=== PATIENT | female | born 1970 | race Caucasian/White ===

== ENCOUNTER 2016-06-27 12:29 | Outpatient (RCR) | payer MEDICAID ==
[2016-06-27 13:56] LABS: BASOPHILS # (AUTO) 0.1 10^3/uL (0.0-0.1); BASOPHILS % (AUTO) 1 % (0-10); EOSINOPHILS # (AUTO) 0.2 10^3/uL (0.0-0.3); EOSINOPHILS % (AUTO) 4 % (0-10); LYMPHOCYTES # (AUTO) 1.9 X 10^3 (1.0-4.0); LYMPHOCYTES % (AUTO) 30 % (12-44); MEAN CORPUSCULAR HEMOGLOBIN 21 PG (25-34); MEAN CORPUSCULAR HGB CONC 31 G/DL (32-36); MEAN CORPUSCULAR VOLUME 68 FL (80-99); MEAN PLATELET VOLUME 10.1 FL (7.4-10.4); MONOCYTES # (AUTO) 0.5 X 10^3 (0.0-1.0); MONOCYTES % (AUTO) 8 % (0-12); NEUTROPHILS # (AUTO) 3.8 X 10^3 (1.8-7.8); NEUTROPHILS % (AUTO) 58 % (42-75); PLATELET COUNT 473 10^3/uL (130-400); RED BLOOD COUNT 5.01 10^6/uL (4.35-5.85); RED CELL DISTRIBUTION WIDTH 20.3 % (10.0-14.5); RETICULOCYTE % 0.54 % (0.50-2.40); WHITE BLOOD COUNT 6.5 10^3/uL (4.3-11.0)
[2016-06-27 14:26] LABS: ALANINE AMINOTRANSFERASE 16 U/L (0-55); ALBUMIN 4.5 G/DL (3.2-4.5); ANION GAP 7 MMOL/L (5-14); ASPARTATE AMINO TRANSFERASE 14 U/L (5-34); BILIRUBIN,TOTAL 0.3 MG/DL (0.1-1.0); BLOOD UREA NITROGEN 16 MG/DL (7-18); BUN/CREATININE RATIO 18; CALCIUM 9.7 MG/DL (8.5-10.1); CARBON DIOXIDE 22 MMOL/L (21-32); CHLORIDE 108 MMOL/L (98-107); GFR ESTIMATED > 60; GLUCOSE 95 MG/DL (70-105); LACTATE DEHYDROGENASE 217 U/L (125-220); POTASSIUM 3.9 MMOL/L (3.6-5.0); SODIUM 137 MMOL/L (135-145); TOTAL PROTEIN 7.9 G/DL (6.4-8.2)
[2016-06-27 14:49] LABS: THYROID STIMULATING HORMONE 1.14 UIU/ML (0.35-4.94)
[2016-08-30] MEDS ORDERED: SUMA100T3 PO (13:00)
[2016-08-30] MEDS ORDERED: OMEP20TA7 PO (13:00)
[2016-08-30] MEDS ORDERED: TRAM50TA2 PO (13:00)
[2016-08-30] MEDS ORDERED: TOPI50TA37 PO (13:00)
[2016-09-07] MEDS ORDERED: DOCU100C37 PO (08:51)
[2016-09-07] MEDS ORDERED: IBUP-1773 PO (08:51)
[2016-09-07] MEDS ORDERED: SIME80TA16 PO (08:51)
[2016-09-07] MEDS ORDERED: HYDR-3816 PO (08:51)
== END 2016-09-25 | disposition home or self-care (01) ==
LOC: ONC 12:29
PROVIDERS: ATTEND Internal Medicine Hematology & Oncology
DX: D50.0 Iron deficiency anemia secondary to blood loss (chronic) (principal); N92.0 Excessive and frequent menstruation with regular cycle; R04.0 Epistaxis
CPT/HCPCS: 36415; 80053; 82728; 83540; 83615; 84443; 85025; 85045; 99214

== ENCOUNTER 2016-08-30 12:43 | Outpatient (CLI) | payer MEDICAID ==
[~2016-08-30] VITALS: Ht 165.1 cm; Wt 73.0 kg
[2016-08-30 12:56] VITALS: BP 109/69
[2016-08-30] MEDS ORDERED: TOPI50TA37 PO (13:00)
[2016-08-30] MEDS ORDERED: SUMA100T3 PO (13:00)
[2016-08-30] MEDS ORDERED: OMEP20TA7 PO (13:00)
[2016-08-30] MEDS ORDERED: TRAM50TA2 PO (13:00)
[2016-08-30 13:31] LABS: BASOPHILS # (AUTO) 0.1 10^3/uL (0.0-0.1); BASOPHILS % (AUTO) 2 % (0-10); EOSINOPHILS # (AUTO) 0.3 10^3/uL (0.0-0.3); EOSINOPHILS % (AUTO) 7 % (0-10); LYMPHOCYTES # (AUTO) 1.7 X 10^3 (1.0-4.0); LYMPHOCYTES % (AUTO) 37 % (12-44); MEAN CORPUSCULAR HEMOGLOBIN 23 PG (25-34); MEAN CORPUSCULAR HGB CONC 31 G/DL (32-36); MEAN CORPUSCULAR VOLUME 73 FL (80-99); MEAN PLATELET VOLUME 11.1 FL (7.4-10.4); MONOCYTES # (AUTO) 0.5 X 10^3 (0.0-1.0); MONOCYTES % (AUTO) 10 % (0-12); NEUTROPHILS # (AUTO) 2.1 X 10^3 (1.8-7.8); NEUTROPHILS % (AUTO) 45 % (42-75); PLATELET COUNT 267 10^3/uL (130-400); RED BLOOD COUNT 4.95 10^6/uL (4.35-5.85); RED CELL DISTRIBUTION WIDTH 20.5 % (10.0-14.5); WHITE BLOOD COUNT 4.7 10^3/uL (4.3-11.0)
== END 2016-08-30 13:20 | disposition home or self-care (01) ==
LOC: PREOP 12:43
PROVIDERS: ATTEND Obstetrics & Gynecology
DX: Z01.812 Encounter for preprocedural laboratory examination (principal); Z11.2 Encounter for screening for other bacterial diseases; N92.0 Excessive and frequent menstruation with regular cycle; D50.0 Iron deficiency anemia secondary to blood loss (chronic)
CPT/HCPCS: 36415; 85025; 86850; 86900; 86901; 87081

== ENCOUNTER 2016-09-07 06:00 | Day surgery (SDC) | payer MEDICAID ==
[~2016-09-07] VITALS: Ht 165.1 cm; Wt 73.0 kg
[~2016-09-07 06:00] MED LIST: OMEP20TA7 PO; SUMA100T3 PO; TOPI50TA37 PO; TRAM50TA2 PO
[2016-09-07] MEDS ORDERED: BUPIVACAINE 0.25% 30 ML (SENSORCAINE) VIAL ONE (06:30)
[2016-09-07] MEDS: LACTATED RINGERS 1,000 ML IV PRN ×2 (06:30→08:15)
[2016-09-07] MEDS ORDERED: ceFAZolin 1,000 MG (ANCEF) VIAL ONE (06:32)
[2016-09-07] MEDS ORDERED: metroNIDAZOLE 500MG/100ML IVPB 100 ML ONE (06:32)
[2016-09-07] MEDS ORDERED: NS (IVPB) 50 ML ONE (06:32)
--- NOTE | 2016-09-07 06:53 | Progress Note-Pre Operative ---
Pre-Operative Progress Note H&P Reviewed The H&P was reviewed, patient examined and no changes noted. Date Seen by Provider: Sep 07, 2016 Time Seen by Provider: 06:45 Date H&P Reviewed: Sep 07, 2016 Time H&P Reviewed: 06:45 Pre-Operative Diagnosis: Chronic blood loss anemia, LOYDAB DINORAH COLEMAN DO Sep 07, 2016 6:53 am
[2016-09-07] MEDS ORDERED: metroNIDAZOLE 500 MG/100 ML IVPB (PRE-MIX) IV ONE (07:00)
[2016-09-07] MEDS ORDERED: ceFAZolin 1 GM/NS 50 ML IVPB IV ONE ×2 (07:00)
[2016-09-07] MEDS ORDERED: CATHETER FLUSH 10 ML SYR IV PRN (07:00)
[2016-09-07] MEDS ORDERED: fentaNYL INJECTION 250 MCG/5 ML AMP ONE (07:01)
[2016-09-07] MEDS ORDERED: MIDAZOLAM 2 MG/2 ML (VERSED) VIAL ONE (07:01)
[2016-09-07] MEDS ORDERED: proPOfol 200 MG/20 ML (DIPRIVAN) VIAL IV ONE (08:31)
[2016-09-07] MEDS ORDERED: SEVOFLURANE (ULTANE) 15 ML INHAL SOLN ONE ×3 (08:31→08:36)
[2016-09-07] MEDS ORDERED: ONDANSETRON 4 MG/2 ML (SDV) Z0FRAN ONE (08:31)
[2016-09-07] MEDS ORDERED: LACTATED RINGERS 1,000 ML IV ONE ×2 (08:31)
[2016-09-07] MEDS ORDERED: ROCURONIUM 50 MG/5 ML (ZEMURON) VIAL IV ONE (08:31)
[2016-09-07] MEDS ORDERED: LIDOCAINE PF 2% 5 ML (XYLOCAINE) VIAL ONE (08:31)
[2016-09-07] MEDS ORDERED: DEXAMETHASONE PF 10 MG/ML (DECADRON) VIAL ONE (08:31)
[2016-09-07] MEDS ORDERED: NEOSTIGMINE (BLOXIVERZ ) 1 MG/1ML 10 ML VIAL ONE (08:32)
[2016-09-07] MEDS ORDERED: GLYCOPYRROLATE 0.2 MG/ML (ROBINUL) 2 ML VIAL ONE (08:32)
[2016-09-07] MEDS ORDERED: HYDROcodone/APAP 7.5 MG/325 MG (LORTAB, LORCET PLUS) TABLET PO PRN (08:45)
[2016-09-07] MEDS ORDERED: DOCUSATE SODIUM 100 MG (COLACE) CAP PO PRN (08:45)
[2016-09-07] MEDS ORDERED: ANTACID SUSP 30 ML UDC (MYLANTA) PO PRN (08:45)
[2016-09-07] MEDS ORDERED: ZOLPIDEM 5 MG (AMBIEN) TAB PO PRN (08:45)
[2016-09-07] MEDS ORDERED: CHLORASEPTIC LOZENGE MM PRN (08:45)
[2016-09-07] MEDS ORDERED: SIMETHICONE 80 MG (MYLICON) CHEW PO PRN (08:45)
[2016-09-07] MEDS ORDERED: ONDANSETRON 4 MG/2 ML (SDV) Z0FRAN IV PRN (08:45)
[2016-09-07] MEDS ORDERED: LACTATED RINGERS 1,000 ML IV SCH (08:45)
--- NOTE | 2016-09-07 08:49 | Discharge Inst-Women's Service ---
Discharge Inst-Women's Serv Depart Medication/Instructions New, Converted or Re-Newed RX: RX on Chart Consults/Follow Up Additional Follow Up: Yes Orders/Referrals Dr. Arias 7-10 days, and 8 weeks Activity Activity: Activity as Tolerated Driving Instructions: No Driving for 1 Week NO SMOKING: NO SMOKING Nothing Inside Vagina: No Douching, No [employer], No Tampons Diet Discharge Diet: No Restrictions Symptoms to Report to : Bleeding Excessive, Pain Increased, Fever Over 101 Degrees F, Vaginal Bleeding Increase, Questions/Concerns For Any Problems or Questions: Contact Your Physician Skin/Wound Care Infection Signs and Symptoms: Increased Redness, Foul Odor of Wound, Increased Drainage, Skin Itchy or Has a Rash, Increased Swelling, Temperature Above 101 F Operative Area Clean and Dry: Keep Incision Clean/Dry Stitches/Griffin/Dermabond: Dermabond, Care of Stitches Bathing Instructions: DINORAH Bueno DO Sep 07, 2016 08:49
[2016-09-07] MEDS ORDERED: IBUP-1773 PO (08:51)
[2016-09-07] MEDS ORDERED: HYDR-3816 PO (08:51)
[2016-09-07] MEDS ORDERED: DOCU100C37 PO (08:51)
[2016-09-07] MEDS ORDERED: SIME80TA16 PO (08:51)
--- NOTE | 2016-09-07 08:59 | Progress Note-Post Operative ---
Post-Operative Progess Note Surgeon (s)/[employer] (s) Surgeon DINORAH COLEMAN DO [employer]: Daya Pisano Pre-Operative Diagnosis Chronic blood loss anemia, AUB Post-Operative Diagnosis same Procedure & Operative Findings Date of Procedure 09/07/16 Procedure Performed/Findings Procedure: Robotic assisted total laparoscopic hysterectomy with bilateral salpingectomy Assist: Daya Pisano Anesthesia: GETA EBL: 30 mL Fluids: 1200 ml LR UOP: 20 clear Findings: grossly normal appearing bilateral fallopian tubes and ovaries Procedure in detail: The patient taken the operating room where general anesthesia was found to be adequate. She is placed in dorsal lithotomy position prepped and draped in normal sterile fashion. She is first examined under anesthesia the uterus is fixed anteverted, no adnexal masses are appreciated. A weighted speculum was inserted patient's vagina after Carpenter catheter is placed using sterile technique. A right angle retractor is used to visualize the cervix. This grasped at the 12 o'clock position using a long Allis clamp. A 0 Vicryl sutures placed the anterior lip of the cervix and uses my retraction point. The Allises removed. I sounded uterine cavity depth which is found to be 8 cm. I selected a 8 cm Jo-Ann uterine manipulator tip, and a 3.5 cm colpotomy ring. The remaining is and placed into the endometrial cavity the balloon was deployed and the colpotomy ring is advanced around the vaginal fornix. I then removal all of the other instruments from the patient's vagina and taken back into the abdomen where infraumbilically I infiltrated 0 using quarter percent Marcaine and make an 8 mm incision using the knife. I directed varies needle through this incision until intraperitoneal placement was confirmed using a saline drop test. An opening pressure of 4 mmHg is noted using CO2 gas I insufflate the peritoneal cavity to a pressure of 15 mmHg at which point I removed the varies needle and introduce an 8 mm blunt da Leidy camera trocar. Once this is in place unable to confirm intraperitoneal placement using the da Leidy laparoscope. I then had the patient placed in steep Trendelenburg and am able to visualize all of the adequate structures to perform the procedure as planned. There is no evidence of damage upon my entry site. I then direct 2 more trochars through the abdominal wall using both 8 mm trochars placed approximately 10 cm lateral to my infraumbilical trocar. Incisions are made using the knife, and the trochars are directed under direct visualization of the laparoscope. Once these are in place I bring in the da Leidy robot and docked in appropriate fashion. I placed the vessel sealer and the left and monopolar luis in the right hand. I then performed the following dissection bilaterally. Starting at the utero-ovarian ligament I bipolar cauterized this and transected using the vessel sealer. I then grasped the round ligament bipolar cauterized this and transected using the vessel sealer. I then create a window in the mesosalpinx using the monopolar luis, and separate the tube from it's blood supply using the vessel sealer. I am then able to grasp the entire broad ligament bipolar cauterized and transected using the vessel sealer down to the level of the lower uterine segment. At this point a separate anterior posterior leaflets, the anterior leaf was taken around to the anterior vaginal fornix, and the posterior leaflets taken onto the posterior vaginal fornix. This allows me to visualize the uterine vessels laterally which I bipolar cauterized and transected using the vessel sealer. I did perform a colpotomy at the 12 o'clock position using monopolar luis were unable to visualize the Jo-Ann colpotomy ring. I take this incision circumferentially around the colpotomy ring using the monopolar luis amputating the cervix with the vaginal fornix. The entire specimen was then removed through the vagina. I then proceeded to closing the vaginal cuff and the lateral vaginal apices i use 2-0 Vicryl suture in a [id number] fashion couple suspending them to the uterosacral ligaments. I then closed the remainder the vaginal cuff using 20V lock in a running fashion. There is no active bleeding noted from any my dissection planes at which point I undocked the da Leidy robot and proceed with the remainder of the case laparoscopically. Once again I copiously irrigated the pelvis using normal saline as no active bleeding noted I placed FloSeal hemostatic agent overall my planes of dissection to ensure excellent postoperative hemostasis. I then had the patient flattened out and remove the lateral trochars under direct visualization of the laparoscope. The infraumbilical trocar is used to release insufflation, and introduce 10 mL's of 0.25% Marcaine into the peritoneal cavity for postoperative pain management. The skin incisions are then closed using 4-0 Monocryl and interrupted subcuticular stitches and Dermabond and Band-Aids are placed over these. Anesthesia Type GETA Estimated Blood Loss Estimated blood loss (mL): 30 Specimens/Packing Specimens Removed uterus and bilateral tubes DINORAH COLEMAN DO Sep 07, 2016 8:59 am
[2016-09-07] MEDS ORDERED: KETOROLAC 30 MG/ML VIAL IVP ONE (09:00)
[2016-09-07] MEDS ORDERED: ONDANSETRON 4 MG/2 ML (SDV) Z0FRAN IVP PRN (09:00)
[2016-09-07] MEDS ORDERED: fentaNYL INJECTION 100 MCG/2 ML AMP IVP PRN (09:00)
[2016-09-07] MEDS ORDERED: morphine INJ 10 MG/ML 1ML (SYR OR VIAL) IVP PRN (09:00)
[2016-09-07] MEDS ORDERED: HYDROmorphone (DILAUDID) 2 MG/ML VIAL IVP PRN (09:00)
[2016-09-07 10:09] VITALS: BP 104/70
[2016-09-07 14:53] VITALS: BP 104/70
[2016-09-07] MEDS ORDERED: KETOROLAC 30 MG/ML VIAL IV PRN (15:00)
[2016-09-08] MEDS ORDERED: IBUPROFEN 600 MG (MOTRIN) TAB PO PRN (09:00)
== END 2016-09-07 17:45 | disposition home or self-care (01) ==
LOC: SDC 06:00 → WS 09:50 → SDC 17:45
PROVIDERS: ATTEND Obstetrics & Gynecology
DX: N92.0 Excessive and frequent menstruation with regular cycle (principal); D50.0 Iron deficiency anemia secondary to blood loss (chronic); N94.89 Other specified conditions associated with female genital organs and menstrual cycle; N84.1 Polyp of cervix uteri; N80.0 Endometriosis of uterus; D25.1 Intramural leiomyoma of uterus; N83.8 Other noninflammatory disorders of ovary, fallopian tube and broad ligament; G43.909 Migraine, unspecified, not intractable, without status migrainosus; F41.9 Anxiety disorder, unspecified; Z79.899 Other long term (current) drug therapy
CPT/HCPCS: 84703; 94664; 96375

== ENCOUNTER 2016-12-23 13:15 | Emergency (ER) | payer MEDICAID ==
[~2016-12-23] VITALS: Ht 165.1 cm; Wt 68.0 kg
[~2016-12-23 13:15] MED LIST changes: +DOCU100C37 PO; +HYDR-3816 PO; +IBUP-1773 PO; +SIME80TA16 PO
--- OUTSIDE RECORDS SUMMARY | 2016-12-23 13:20 | XMS REPORT | Continuity of Care Document ---
Author Author [employer] Organization [facility] Address Unknown Phone Unavailable Care Team Providers Care Rd Scientist Name Role Phone [employer] Unavailable Unavailable Problems Problem Status Onset Date Classification Date Reported Comments Source Iron deficiency anemia, unspecified 07/24/2016 [facility] Excessive and frequent menstruation with regular cycle 07/24/2016 [facility] Epistaxis 07/24/2016 [facility] Family history of diseases of the blood and blood-forming organs and certain disorders involving the immune mechanism 07/24/2016 [facility] No data available for this section Problem 07/24/2016 [facility] Medications Allergies, Adverse Reactions, Alerts Immunizations Immunization Date Given Site Status Last Updated Comments Source No data available for this section No data available for this section [facility] Results Order Name Results Value Reference Range Date Interpretation Comments Source Coagulation Fibrinogen 321 mg /dL 200 - 400 07/19/2016 [facility] Hematology Baso 0.10 10^3/ cmm 0.00 - 0.75712 2016 [facility] Hematology/Oncology Consultation Hematology/Oncology Consultation Patient: CAMI ASXENA Age: 46 years Sex: Female : 72 Associated Diagnoses: None Author: [place] Visit Information Reason for consult: Concern for underlying bleeding disorder. Consulting physician: Self referral Chief Complaint Menorrhagia History of Present Illness Patient is a 46-year-old female. She has 2 kids with some bleeding disorder. Her son has questionable hyper fibrinolysis/plasminogen activator inhibitor deficiency, he follows with Dr. Aries Alvarez. One of her daughter also has some platelet aggregation disorder. According to patient she had heavy menstruation throughout her life. She bleeds at least for 7-8 days during each cycle. And sometimes has to use double pads with frequent blood clots. She says she also had nosebleeds which were spontaneous and less frequent but for last 4 months they have become more frequent specially with change of the head position. That's why she got concerned and especially with her kids having some bleeding disorders she thought she might also have some kind of bleeding disorder, that's why she is following with hemophilia clinic. Off note she has followed with her primary care physician as well as item repair manager as an outpatient at her primary residential site which is near [facility], her labs showed iron deficiency and she was recommended to have iron replacement therapy. Denies any blood in the stools or blood loss anywhere else. Denies any colonoscopy in the past. Past medical history: GERD, prediabetes, migraines. Allergies: Penicillin. Social history: Nonsmoker nonalcoholic. Family history: Mom's side had some bleeding problems but she is not sure if they had any diagnoses Review of Systems: Constitutional: No fever CVS: No cp RESP: No sob or cough GI: No nausea or vomiting SKIN: No rash MSK: No bone pain ALLERGIES: No rhinorrhea ENDOCRINE: No polyuria, or polydipsia OFFENDER JOB RETENTION SPECIALIST: No headache or dizziness : No hematuria or burning Health Status Allergies: No active allergies have been recorded. Histories Family History: No family history items have been selected or recorded. Procedure history: No active procedure history items have been selected or recorded. Social History No Data Available . Physical Examination VS/Measurements Vital Signs 07/19/16 08:44 Temperature Oral 97.5 DegF Heart Rate 67 bpm Resp. Rate 18 BRMIN Systolic BP 102 mmHg Diastolic BP 68 mmHg BP Site Right Arm Cuff Size Adult Large Cuff Oxygen Saturation 97 % O2 Source Room Air , Bariatric Measurements : Bariatric View 07/19/16 08:44 Weight 76.1 kg General: Alert and oriented. Eye: Pupils are equal, round and reactive to light, Vision unchanged. HENT: Normocephalic, Oral mucosa is moist. Neck: Supple, Non-tender, No lymphadenopathy, No thyromegaly. Respiratory: Lungs are clear to auscultation, Respirations are non-labored, Breath sounds are equal, Symmetrical chest wall expansion. Cardiovascular: Normal rate, Regular rhythm, No murmur, No gallop, Normal peripheral perfusion, No edema. Gastrointestinal: Soft, Non-tender, Non-distended, Normal bowel sounds, No organomegaly. Genitourinary: No costovertebral angle tenderness. Lymphatics: No lymphadenopathy neck, axilla, groin. Musculoskeletal Normal range of motion. Normal strength. Integumentary: Warm, Dry. Neurologic: Alert, Oriented, Normal sensory, Normal motor function, No focal defects. Cognition and Speech: Oriented. Psychiatric: Cooperative. Health Maintenance Health Maintenance Pending (in the next year) Due Immunization - Tetanus due 07/20/16 and every 10 yr Screening - Cervical Cancer due 07/20/16 Variable frequency Screening - Cholesterol due 07/20/16 Variable frequency Screening - Depression due 07/20/16 Variable frequency Screening - Diabetes due 07/20/16 Variable frequency Screening - HIV due 07/20/16 One-time only Due In Future Immunization - Influenza not due until 10/07/16 and every 1 yr Satisfied (in the past 1 year) There are no satisfied recommendations within the defined date range Review / Management Her iron studies from outside facility shows TIBC of 480 ferritin of 4 iron of 29% saturation of 6% Impression and Plan Iron deficiency anemia Nosebleeds Menorrhagia Family history of bleeding disorders(exact cause unclear) Patient clearly has iron deficiency anemia and she will need iron replacement, she will follow with her primary care physician in [facility] to follow on that. Now as far as her menorrhagia and nosebleeds are concerned there could be some underlying bleeding disorder. We don't have any coagulation labs to further comment on that. That's why we will get following labs, and depending on the results will decide on the next step. CBC PT/APTT D-dimer at Fibrinogen levels Plasminogen level Factor VIII activity Von Willebrand's antigen Ristocetin cofactor Factor XIII activity We will follow I have reviewed Dr. Krause's evaluation, and examined the pt, and I agree with the plan for evaluation as outlined. 07/19/2016 [facility] Vital Signs Vital Sign Value Date Comments Source BP Site Right Arm
</br>(07/19/16 8:44 AM) 07/19/2016 [facility] Systolic BP 102 mmHg 2016 [facility] Diastolic BP 68 mmHg 2016 [facility] Cuff Size Adult Large Cuff
</br>(07/19/16 8:44 AM) 07/19/2016 [facility] Oxygen Saturation 97 % 2016 [facility] O2 Source Room Air
</br>(07/19/16 8:44 AM) 07/19/2016 [facility] Heart Rate 67 bpm 07/19/2016 [facility] Resp. Rate 18 BRMIN 2016 [facility] Temperature Oral 97.5 [degF] 07/19/2016 [facility] Encounters Location Location Details Encounter Type Encounter Number Reason For Visit Attending Provider ADM Date DC Date Status Source [facility] REF [id number] genetic testing Arezou Heshmati 04/16/2012 04/16/2012 Active [facility] [id number] 07/19/2016 07/20/2016 [facility] Procedures Procedure Code Date Perfomer Comments Source No data available for this section [facility] Plan of Care Social History Assessment and Plan Date Assessment and Plan Source Author:Bhavya Maddox Title:Ambulatory Patient Education Date:07/19/16 [facility] [address] [place] [address] Visit Information/Informacion de Visita Name/Nombre: CAMI SAXENA Date of /Fecha de Nacimiento: 1970 12:00 AM Visit Date/Fecha de Visita: [facility] Provider/Proveedor de Clinica: Resident Provider: Attending Provider: Sonia Lowery This is the list of current medications in your medical record. It may include medications from visits to other areas of the [facility] and medications you told us were prescribed by other doctors. If you have questions about any medications that were not prescribed from this clinic, please contact the doctor who prescribed them. Your Medications/Madelyn Medicamentos Here is a list of your medications/Aqu est randa lista de madelyn medicinas. Medication/Strength Dose Route Frequency Indications/Special Instructions/Comments No Medications found If you haven't been contacted for an appointment within two weeks, please call for [facility] or for [place]. Future Orders Placed Today/Ordenes de Doctor Order Name Details Ordering Provider CBC w/auto diff Collected Y/N: No Collection Priority: Routine Requested Start Date/Time: 07/19/16 10:09:00 Reporting Priority: RT Requested Appt Date: BRIA Specimen Type: Blood Future Order: Yes Nurse Collect: No Specimen Available: No Print Label: Yes Weight in K.1 kg Diagnosis: Bleeding Hold Until Collected: No Stop Date/Time: 07/19/16 10:09:00 Jimi , Dia O APTT/PT Collected Y/N: No Collection Priority: Routine Requested Start Date/Time: 07/19/16 10:09:00 Reporting Priority: RT Requested Appt Date: BRIA Specimen Type: Blood Future Order: Yes Nurse Collect: No Specimen Available: No Print Label: Yes Weight in K.1 kg Diagnosis: Bleeding Hold Until Collected: No Stop Date/Time: 07/19/16 10:09:00 Jimi , Dia O D dimer Collected Y/N: No Collection Priority: Routine Requested Start Date/Time: 07/19/16 10:09:00 Reporting Priority: RT Requested Appt Date: BRIA Specimen Type: Blood Future Order: Yes Nurse Collect: No Specimen Available: No Print Label: Yes Weight in K.1 kg Diagnosis: Bleeding Hold Until Collected: No Stop Date/Time: 07/19/16 10:09:00 Jimi , Dia O Fibrinogen plasma Collected Y/N: No Collection Priority: Routine Requested Start Date/Time: 07/19/16 10:09:00 Reporting Priority: RT Requested Appt Date: BRIA Specimen Type: Blood Future Order: Yes Nurse Collect: No Specimen Available: No Print Label: Yes Weight in K.1 kg Diagnosis: Bleeding Hold Until Collected: No Stop Date/Time: 07/19/16 10:09:00 Jimi , Dia O Plasminogen activity Collected Y/N: No Collection Priority: Routine Requested Start Date/Time: 07/19/16 10:09:00 Reporting Priority: RT Requested Appt Date: BRIA Specimen Type: Blood Future Order: Yes Nurse Collect: No Print Label: Yes Diagnosis: Bleeding Hold Until Collected: No Stop Date/Time: 07/19/16 10:09:00 Jimi LevDia O Factor VIII Activity Collected Y/N: No Collection Priority: Routine Requested Start Date/Time: 07/19/16 10:09:00 Reporting Priority: RT Requested Appt Date: BRIA Specimen Type: Blood Future Order: Yes Nurse Collect: No Print Label: Yes Diagnosis: Bleeding Hold Until Collected: No Stop Date/Time: 07/19/16 10:09:00 [place] O Factor VIII rel Ag(von Willebrand factor Collected Y/N: No Collection Priority: Routine Requested Start Date/Time: 07/19/16 10:09:00 Reporting Priority: RT Requested Appt Date: BRIA Specimen Type: Blood Future Order: Yes Nurse Collect: No Print Label: Yes Diagnosis: Bleeding Hold Until Collected: No Stop Date/Time: 07/19/16 10:09:00 [place] O Ristocetin Cofactor Collected Y/N: No Collection Priority: Routine Requested Start Date/Time: 07/19/16 10:09:00 Reporting Priority: RT Requested Appt Date: BRIA Specimen Type: Blood Future Order: Yes Nurse Collect: No Print Label: Yes Diagnosis: Bleeding Hold Until Collected: No Stop Date/Time: 07/19/16 10:09:00 [place] O Factor XIII Activity Collected Y/N: No Collection Priority: Routine Requested Start Date/Time: 07/19/16 10:18:00 Reporting Priority: RT Requested Appt Date: BRIA Specimen Type: Blood Future Order: Yes Nurse Collect: No Print Label: Yes Diagnosis: Bleeding Hold Until Collected: No Stop Date/Time: 07/19/16 10:18:00 [place] O Patient Follow-up Information/Informacion de seguimiento del paciente Your Upcoming Appointments/Madelyn proximas citas Please bring all home medications to every visit with us at [facility]. Your safety and education around medications is our goal. (Prescription , non prescription and herbal supplements) Date Time Location Appointment Type Provider No Appointments found Additional Patient Information/Informacion adicional del paciente: Weight: 167 lb 12 oz Blood Pressure: 102/68 mmHg Patient Instructions/Instrucciones para el Paciente All smokers are encouraged to stop smoking. If you would like help, talk to your doctor or call The [place] Tobacco Quitline at 4-957-VVEXNOW (7-170-698- 4444). If you have thoughts about committing suicide or otherwise hurting yourself, please call 911 or call Crisis Line at . Prescription leaflets: Get Smart: Know When Antibiotics Work When you feel sick, you want to feel better fast. But antibiotics aren t the answer for every illness. The Risk: Bacteria Become Resistant What s the harm in taking antibiotics anytime? Using antibiotics when they are not needed causes some bacteria to become resistant to the antibiotic. These resistant bacteria are stronger and harder to kill. They can stay in your body and can cause severe illnesses that cannot be cured with antibiotics. A cure for resistant bacteria may require stronger treatment and possibly a stay in the hospital. To avoid the threat of antibiotic-resistant infections, the Centers for Disease Control and Prevention (CDC) recommends you avoid taking unnecessary antibiotics. Antibiotics Aren t Always the Answer Most illnesses are caused by two kinds of germs: bacteria or viruses. Antibiotics can cure bacterial infections but not viral infections. Bacteria cause strep throat, some pneumonia, and sinus infections. Antibiotics can work. Viruses cause the common cold, most coughs, and the flu. Antibiotics don t work. Using antibiotics for a virus: Will NOT cure the infection Will NOT help you feel better Will NOT keep others from catching your illness If antibiotics are prescribed for you to treat a bacterial infection such as strep throat be sure to take all of the medicine. Only using part of the prescription means that only part of the infection has been treated. Not finishing the medicine can cause resistant bacteria to develop. Common Condition: What s got you sick? Common Cause Are antibiotics needed? Bacteria Bacteria or Virus Virus Strep throat X Yes Whooping cough X Yes Urinary tract infection X Yes Sinus infection X Maybe Middle ear infection X Maybe Bronchitis/chest cold (in otherwise healthy children and adults) X No Common cold/runny nose X No Sore throat (except strep) X No Flu X No For more information, talk to your healthcare provider or visit www.cdc.gov/ getsmart. This education material has been adapted from CDC Get Smart Program Take Charge of Your Health with eEvent Sign up today for [employer] for access to your health records 28/08. [employer] allows you to: Request an appointment Check your lab results Communicate with your providers and care team See provider notes from your visit View immunization records View current medication Sign up Today! Ask your healthcare provider or a [facility] associate for help, or email [email or web address] HEMANTH Kilgore CHRISTY ANN, have received the attached patient education materials/ instructions and have verbalized understanding/Yo recibi educacion, materiales instrucciones de paciente y se me a explicado verbalmente para mi propia comprension: Patient/Guardian Signature Date Firma de paciente/guardian Fecha Witness Signature Date Firma de Testigo Fecha [facility] complies with applicable Federal civil rights laws and does not discriminate on the basis of race, color, national origin, age, disability, or sex. ATENCI N: si hope morrison, tiene a laughlin disposicin servicios gratuitos de asistencia lingstica. Llame al (TTY: ) (TTY: ) : . ( : ). [facility] Author:[place] Title:Consultation Date:07/19/16 Patient: CAMI SAXENA Age: 46 years Sex: Female : 72 Associated Diagnoses: None Author: [place] Visit Information Reason for consult: Concern for underlying bleeding disorder. Consulting physician: Self referral Chief Complaint Menorrhagia History of Present Illness Patient is a 46-year-old female. She has 2 kids with some bleeding disorder. Her son has questionable hyper fibrinolysis/plasminogen activator inhibitor deficiency, he follows with Dr. Aries Alvarez. One of her daughter also has some platelet aggregation disorder. According to patient she had heavy menstruation throughout her life. She bleeds at least for 7-8 days during each cycle. And sometimes has to use double pads with frequent blood clots. She says she also had nosebleeds which were spontaneous and less frequent but for last 4 months they have become more frequent specially with change of the head position. That's why she got concerned and especially with her kids having some bleeding disorders she thought she might also have some kind of bleeding disorder, that's why she is following with hemophilia clinic. Off note she has followed with her primary care physician as well as item repair manager as an outpatient at her primary residential site which is near [facility], her labs showed iron deficiency and she was recommended to have iron replacement therapy. Denies any blood in the stools or blood loss anywhere else. Denies any colonoscopy in the past. Past medical history: GERD, prediabetes, migraines. Allergies: Penicillin. Social history: Nonsmoker nonalcoholic. Family history: Mom's side had some bleeding problems but she is not sure if they had any diagnoses Review of Systems: Constitutional: No fever CVS: No cp RESP: No sob or cough GI: No nausea or vomiting SKIN: No rash MSK: No bone pain ALLERGIES: No rhinorrhea ENDOCRINE: No polyuria, or polydipsia OFFENDER JOB RETENTION SPECIALIST: No headache or dizziness : No hematuria or burning Health Status Allergies: No active allergies have been recorded. Histories Family History: No family history items have been selected or recorded. Procedure history: No active procedure history items have been selected or recorded. Social History Social & Psychosocial Habits No Data Available . Physical Examination VS/Measurements Vital Signs 07/19/16 08:44 Temperature Oral 97.5 DegF Heart Rate 67 bpm Resp. Rate 18 BRMIN Systolic BP 102 mmHg Diastolic BP 68 mmHg BP Site Right Arm Cuff Size Adult Large Cuff Oxygen Saturation 97 % O2 Source Room Air , Bariatric Measurements : Bariatric View 07/19/16 08:44 Weight 76.1 kg General: Alert and oriented. Eye: Pupils are equal, round and reactive to light, Vision unchanged. HENT: Normocephalic, Oral mucosa is moist. Neck: Supple, Non-tender, No lymphadenopathy, No thyromegaly. Respiratory: Lungs are clear to auscultation, Respirations are non-labored, Breath sounds are equal, Symmetrical chest wall expansion. Cardiovascular: Normal rate, Regular rhythm, No murmur, No gallop, Normal peripheral perfusion, No edema. Gastrointestinal: Soft, Non-tender, Non-distended, Normal bowel sounds, No organomegaly. Genitourinary: No costovertebral angle tenderness. Lymphatics: No lymphadenopathy neck, axilla, groin. Musculoskeletal Normal range of motion. Normal strength. Integumentary: Warm, Dry. Neurologic: Alert, Oriented, Normal sensory, Normal motor function, No focal defects. Cognition and Speech: Oriented. Psychiatric: Cooperative. Health Maintenance Health Maintenance Pending (in the next year) Due Immunization - Tetanus due 07/20/16 and every 10 yr Screening - Cervical Cancer due 07/20/16 Variable frequency Screening - Cholesterol due 07/20/16 Variable frequency Screening - Depression due 07/20/16 Variable frequency Screening - Diabetes due 07/20/16 Variable frequency Screening - HIV due 07/20/16 One-time only Due In Future Immunization - Influenza not due until 10/07/16 and every 1 yr Satisfied (in the past 1 year) There are no satisfied recommendations within the defined date range Review / Management Her iron studies from outside facility shows TIBC of 480 ferritin of 4 iron of 29% saturation of 6% Impression and Plan Iron deficiency anemia Nosebleeds Menorrhagia Family history of bleeding disorders(exact cause unclear) Patient clearly has iron deficiency anemia and she will need iron replacement, she will follow with her primary care physician in [facility] to follow on that. Now as far as her menorrhagia and nosebleeds are concerned there could be some underlying bleeding disorder. We don't have any coagulation labs to further comment on that. That's why we will get following labs, and depending on the results will decide on the next step. CBC PT/APTT D-dimer at Fibrinogen levels Plasminogen level Factor VIII activity Von Willebrand's antigen Ristocetin cofactor Factor XIII activity We will follow I have reviewed Dr. Krause's evaluation, and examined the pt, and I agree with the plan for evaluation as outlined. Addendum by Corwin Haywood on July 21, 2016 09:12 [facility] Family History Value Date Source Advance Directives Order Name Results Value Date Source
--- OUTSIDE RECORDS SUMMARY | 2016-12-23 13:20 | XMS REPORT | Summary of Care ---
Author Author [facility] Organization [facility] Address Unknown Phone Unavailable Encounter HBOC Date(s): 07/19/16 - 07/19/16 [facility] [address] [id number] [phone] Discharge Disposition: Discharge to Home or Self-care OP Attending Physician: Sonia Lowery Admitting Physician: Sonia Lowery Vital Signs Most recent to 1 oldest [Reference Range]: Temperature Oral 97.5 DegF [96.4-99.1 DegF] (07/19/16 8:44 AM) Heart Rate [60-100 67 bpm bpm] (07/19/16 8:44 AM) Resp. Rate [14-20 18 BRMIN BRMIN] (07/19/16 8:44 AM) Blood Pressure 102/68 mmHg [90-140/60-90 mmHg] (07/19/16 8:44 AM) BP Site Right Arm (07/19/16 8:44 AM) Cuff Size Adult Large Cuff (07/19/16 8:44 AM) Oxygen Saturation 97 % [92-100 %] (07/19/16 8:44 AM) O2 Source Room Air (07/19/16 8:44 AM) Problem List No data available for this section Allergies, Adverse Reactions, Alerts No data available for this section Medications No data available for this section Results Hematology Most recent to 1 oldest [Reference Range]: WBC [4.30-10.80 5.10 10^3/cmm 10^3/cmm] (07/19/16 10:53 AM) RBC [4.20-5.20 5.07 10^6/cmm 10^6/cmm] (07/19/16 10:53 AM) Hemoglobin 11.1 g/dL [12.0-16.0 g/dL] *LOW* (07/19/16 10:53 AM) Hematocrit 36.2 % [34.0-47.0 %] (07/19/16 10:53 AM) MCV [80.0-100.0 FL] 71.5 FL *LOW* (07/19/16 10:53 AM) MCH [27.0-34.0 PG] 21.9 PG *LOW* (07/19/16 10:53 AM) MCHC [32.0-36.0 30.6 g/dL g/dL] *LOW* (07/19/16 10:53 AM) Plt [150-400 306 10^3/cmm 10^3/cmm] (07/19/16 10:53 AM) MPV [7.4-10.4 FL] 9.1 FL (07/19/16 10:53 AM) RDW [11.5-14.5 %] 22.0 % *HI* (07/19/16 10:53 AM) Gran % [45.0-74.0 %] 55.0 % (07/19/16 10:53 AM) Lymph % [22.0-50.0 28.3 % %] (07/19/16 10:53 AM) [place] % [1.0-9.0 %] 6.4 % (07/19/16 10:53 AM) Eos % [1.0-8.0 %] 8.0 % (07/19/16 10:53 AM) Baso % [0.0-2.0 %] 2.3 % *HI* (07/19/16 10:53 AM) Gran [1.4-7.0 2.8 10^3/cmm 10^3/cmm] (07/19/16 10:53 AM) Lymph [1.2-3.5 1.4 10^3/cmm 10^3/cmm] (07/19/16 10:53 AM) [place] [0.0-0.6 0.3 10^3/cmm 10^3/cmm] (07/19/16 10:53 AM) Eos [0.00-0.70 0.40 10^3/cmm 10^3/cmm] (07/19/16 10:53 AM) Baso [0.00-0.15 0.10 10^3/cmm 10^3/cmm] (07/19/16 10:53 AM) NRBC Auto 0.0 /100WBC *NA* (07/19/16 10:53 AM) Coagulation Most recent to 1 oldest [Reference Range]: Protime [9.9-13.3 10.1 sec sec] (07/19/16 10:53 AM) INR [0.8-1.2] 0.9 (07/19/16 10:53 AM) APTT [24.0-36.5 sec] 32.2 sec (07/19/16 10:53 AM) Fibrinogen [200-400 321 mg/dL mg/dL] (07/19/16 10:53 AM) D-Dimer [0-250 ng/mL <200 ng/mL DDU DDU] (07/19/16 10:53 AM) Immunizations No data available for this section Procedures No data available for this section Social History No data available for this section Functional Status No data available for this section Assessment and Plan Extracted from: Title: Ambulatory Patient Education Author: Bhavya Maddox Date: [facility]. [address] [address] Visit Information/Informacion de Visita Name/Nombre: CAMI SAXENA Date of /Fecha de Nacimiento: 1970 12:00 AM Visit Date/Fecha de Visita: [facility] Provider/Proveedor de Clinica: Resident Provider: Attending Provider: Sonia Lowery This is the list of current medications in your medical record. It may include medications from visits to other areas of the hospital and medications you told us were [...] an appointment within two weeks, please call [phone] for [facility] or for [place]. Future Orders Placed Today/Ordenes de Doctor Order Name Details Ordering Provider CBC w/auto diff Collected Y/N: No Collection Priority: Routine Requested Start Date/Time: 07/19/16 10:09:00 Reporting Priority: RT Requested Appt Date: BRIA Specimen Type: Blood Future Order: Yes Nurse Collect: No Specimen Available: No Print Label: Yes Weight in K.1 kg Diagnosis: Bleeding Hold Until Collected: No Stop Date/Time: 07/19/16 10:09:00 Jimi South O APTT/PT Collected Y/N: No Collection Priority: Routine Requested Start Date/Time: 07/19/16 10:09:00 Reporting Priority: RT Requested Appt Date: BRIA Specimen Type: Blood Future Order: Yes Nurse Collect: No Specimen Available: No Print Label: Yes Weight in K.1 kg Diagnosis: Bleeding Hold Until Collected: No Stop Date/Time: 07/19/16 10:09:00 Jimi South O D dimer Collected Y/N: No Collection Priority: Routine Requested Start Date/Time: 07/19/16 10:09:00 Reporting Priority: RT Requested Appt Date: BRIA Specimen Type: Blood Future Order: Yes Nurse Collect: No Specimen Available: No Print Label: Yes Weight in K.1 kg Diagnosis: Bleeding Hold Until Collected: No Stop Date/Time: 07/19/16 10:09:00 Jimi Baldevd O Fibrinogen plasma Collected Y/N: No Collection Priority: Routine Requested Start Date/Time: 07/19/16 10:09:00 Reporting Priority: RT Requested Appt Date: BRIA Specimen Type: Blood Future Order: Yes Nurse Collect: No Specimen Available: No Print Label: Yes Weight in K.1 kg Diagnosis: Bleeding Hold Until Collected: No Stop Date/Time: 07/19/16 10:09:00 Jimi South O Plasminogen activity Collected Y/N: No Collection Priority: Routine Requested Start Date/Time: 07/19/16 10:09:00 Reporting Priority: RT Requested Appt Date: BRIA Specimen Type: Blood Future Order: Yes Nurse Collect: No Print Label: Yes Diagnosis: Bleeding Hold Until Collected: No Stop Date/Time: 07/19/16 10:09:00 Jimi South O Factor VIII Activity Collected Y/N: No Collection Priority: Routine Requested Start Date/Time: 07/19/16 10:09:00 Reporting Priority: RT Requested Appt Date: BRIA Specimen Type: Blood Future Order: Yes Nurse Collect: No Print Label: Yes Diagnosis: Bleeding Hold Until Collected: No Stop Date/Time: 07/19/16 10:09:00 Jimi South O Factor VIII rel Ag(von Willebrand factor [...] Until Collected: No Stop Date/Time: 07/19/16 10:18:00 Jimi South O Patient Follow-up Information/Informacion de seguimiento del paciente Your Upcoming Appointments/Madelyn proximas citas Please bring all home medications to every visit with us at [facility]. Your safety and education around [...] talk to your doctor or call The [place] [employer] Quitline at 0-634-TAGCNOW ([phone]). If you have thoughts about committing suicide [...] Program Take Charge of Your Health with [facility] Sign up today for [employer] for access to your health records 28/08. [facility] allows you to: Request an appointment Check your lab results Communicate with your providers and care team See provider notes from your visit View immunization records View current medication Sign up Today! Ask your healthcare provider or a [facility] associate for help, or email [email or web address] HEMANTH Kilgore, CAMI RAISA, have received the attached patient education materials/ instructions and have verbalized understanding/Yo recibi educacion, materiales instrucciones de paciente y se me a explicado verbalmente para mi propia comprension: Patient/Guardian Signature Date Firma de paciente/guardian Fecha Witness Signature Date Firma de Testigo Fecha [facility] complies with applicable Federal civil rights laws and does not discriminate on the basis of race, color, national origin, age, disability, or sex. ATENCI N: si hope morrison, tiene a laughlin disposicin servicios gratuitos de asistencia lingstica. Batsheva boo (TTY: ) (TTY: ) : . ( : ). Hospital Discharge Instructions No data available for this section
[2016-12-23] MEDS ORDERED: KETOROLAC 60 MG/2 ML VIAL IM STA (14:35)
[2016-12-23] MEDS ORDERED: ONDANSETRON 4 MG (ZOFRAN) ORAL DISSOLVE TAB SL STA (14:35)
--- NOTE | 2016-12-23 14:35 | ED Abdominal Pain ---
General Chief Complaint: Abdominal/GI Problems Stated Complaint: VOMITING, R EAR PAIN History of Present Illness Time Seen By Provider: 14:25 Initial Comments 46-year-old female presents for right ear pain, migraine and vomiting. She states the ear pain started approximately 3 days ago, it has started to progress to a migraine over the last 24 hours. She awoke this morning with vomiting, reports multiple episodes. Unable to keep by mouth fluids in. She has taken her home medications but vomited afterwards. Patient reports increased stress recently, she is being followed by her primary care provider and [employer] DEVELOPER, she reports that she has had a 30 pound weight loss in the last month. She's been recommended for a colonoscopy but had to cancel it because her grandmother had a stroke. She becomes tearful easily, she denies any suicidal deviations. Timing/Duration: 1-2 Days Severity/Quality: Moderate Location: Generalized Abdomen Radiation: No Radiation Activities at Onset: None Modifying Factors: Improves With Resting Associated Symptoms: No Back Pain, No Chest Pain, No Diaphoresis, No Fever/ Chills, Fatigue, Headache, No Heartburn, Nausea/Vomiting, No Rash, No Shortness of Air, No Swelling/Mass in Abdomen, No Syncope, No Weakness Allergies and Home Medications Allergies Coded Allergies: Penicillins (Verified Allergy, Unknown, RASH, 08/30/16) Home Medications Docusate Sodium 100 Mg Capsule, 100 MG PO BID PRN for CONSTIPATION-1ST LINE, #40 Prescribed by: DINORAH COLEMAN on 09/07/16 0851 Hydrocodone/Acetaminophen 1 Each Tablet, 1-2 EA PO Q6H PRN for Pain-See Instructions, #50 Prescribed by: DINORAH COLEMAN on 09/07/16 0851 Ibuprofen 600 Mg Tablet, 600 MG PO Q6H PRN for PAIN-MODERATE, #80 Prescribed by: DINORAH COLEMAN on 09/07/16 0851 Omeprazole 20 Mg Tablet.dr, 20 MG PO DAILY, (Reported) Ondansetron 8 Mg Tab.rapdis, 8 MG PO Q8H, #6 Ref 0 Prescribed by: JAIRO KO on 12/23/16 1538 Simethicone 80 Mg Tab.chew, 40 MG PO TID PRN for INDIGESTION 2ND LINE, #40 Prescribed by: DINORAH COLEMAN on 09/07/16 0851 Sumatriptan Succinate 100 Mg Tablet, 50 MG PO BID PRN for MIGRAINE, (Reported) take 1/2 of 100mg tab Topiramate 50 Mg Tablet, 50 MG PO BID, (Reported) Tramadol HCl 50 Mg Tablet, 50 MG PO DAILY, (Reported) Review of Systems Constitutional: no symptoms reported, see HPI EENTM: See HPI, Ear Pain (right) Respiratory: No Symptoms Reported, See HPI Gastrointestinal: See HPI, Nausea, Poor Appetite, Poor Fluid Intake, Vomiting All Other Systems Reviewed Negative Unless Noted: Yes Past Xkkmzia-Vlqage-Ajyute Hx Patient Social History Recent Foreign Travel: No Contact w/Someone Who Travel: No Recent Hopitalizations: No Seasonal Allergies Seasonal Allergies: Yes Surgeries Surgeries: Tonsillectomy Neurological Neurological Disorders: Headaches /Migraines Psychosocial Behavioral Health Disorders: Anxiety Family Medical History Family Medial History: Asthma 19 MOTHER Physical Exam Vital Signs VS - Last 72 Hours, by Label 12/23/16 14:23 Temp 97.6 Pulse 89 Resp 16 B/P (MAP) 125/86 Pulse Ox 97 O2 Delivery Room Air Capillary Refill : General Appearance: WD/WN, no apparent distress HEENT: PERRL/EOMI, normal ENT inspection, TMs normal, pharynx normal Neck: non-tender, full range of motion, supple Respiratory: chest non-tender, lungs clear, normal breath sounds Cardiovascular: normal peripheral pulses, regular rate, rhythm, no edema Gastrointestinal: normal bowel sounds, non tender, soft, no organomegaly Neurologic/Psychiatric: no motor/sensory deficits, alert, normal mood/affect, oriented x 3 Skin: normal color, warm/dry Progress/Results/Core Measures Results/Orders My Orders Orders - JAIRO KO Ketorolac Injection (Toradol Injection) (12/23/16 14:35) Ondansetron Oral Dissolve Tab (Zofran (12/23/16 14:35) Vital Signs/I&O Vital Sign - Last 12Hours 12/23/16 14:23 Temp 97.6 Pulse 89 Resp 16 B/P (MAP) 125/86 Pulse Ox 97 O2 Delivery Room Air Progress Note : Time: 14:25 Progress Note Evaluation for right ear pain, nausea and vomiting and migraine. Recommended Toradol 60 mg IM and Zofran 8 mg by mouth. Will reevaluate. 1515 patient reports all symptoms are improving. She is taking Pedialyte sips at this time with no nausea or vomiting. 1530 discharge plans discussed with patient, all questions answered and return precautions reviewed. Departure Impression Impression: Primary Impression: Migraine Qualified Codes: G43.019 - Migraine without aura, intractable, without status migrainosus Additional Impression: Nausea and vomiting Qualified Codes: G43.A1 - Cyclical vomiting, intractable Disposition: 01 HOME, SELF-CARE Condition: Stable Departure-Patient Inst. Decision time for Depature: 15:15 Referrals: BERNY JETT DO (PCP/Family) Primary Care Physician Patient Instructions: Ibuprofen, Nausea and Vomiting, Adult Add. Discharge Instructions: Clear liquid diet for the next 4 hours, then progress to bland. Take Zofran every 8 hours for nausea and vomiting. Follow-up with primary care provider next week if symptoms are not improving. Turned to emergency department if symptoms worsen. All discharge instructions reviewed with patient and/or family. Voiced understanding. Scripts Ondansetron (Zofran Odt) 8 Mg Tab.rapdis 8 MG PO Q8H for Nausea, #6 TAB 0 Refills Prov: JAIRO KO 12/23/16 JAIRO KO Dec 23, 2016 14:35
[2016-12-23] MEDS ORDERED: ONDA8TAB9 PO (15:38)
[2016-12-23 15:49] VITALS: BP 125/86
== END 2016-12-23 15:49 | disposition home or self-care (01) ==
LOC: EDUNIT# 13:15 → ER 13:16
DX: G43.909 Migraine, unspecified, not intractable, without status migrainosus (principal); R11.2 Nausea with vomiting, unspecified; F41.9 Anxiety disorder, unspecified; Z90.89 Acquired absence of other organs
CPT/HCPCS: 99284

== ENCOUNTER 2017-05-02 09:48 | Outpatient (CLI) | payer MEDICAID ==
[~2017-05-02] VITALS: Ht 165.1 cm; Wt 69.4 kg
[~2017-05-02 09:48] MED LIST changes: +HYDR-34 PO; -HYDR-3816 PO; +ONDA8TAB9 PO
[2017-05-02 10:01] VITALS: BP 109/76
[2017-05-02] MEDS ORDERED: IBUP-1773 PO (10:11)
[2017-05-02] MEDS ORDERED: HYDR-3812 PO (10:11)
[2017-05-02] MEDS ORDERED: DIAZ5TAB3 PO (10:11)
[2017-05-02] MEDS ORDERED: ONDA4TAB8 SL (10:11)
[2017-05-02] MEDS ORDERED: TOPI100T11 PO (10:11)
[2017-05-02] MEDS ORDERED: METR500T21 PO (10:11)
[2017-05-02] MEDS ORDERED: CIPR500T4 PO (10:11)
[2017-05-02 10:45] LABS: BASOPHILS % (AUTO) 0 % (0-10); EOSINOPHILS # (AUTO) 0.1 10^3/uL (0.0-0.3); EOSINOPHILS % (AUTO) 2 % (0-10); HEMATOCRIT 42 % (35-52); HEMOGLOBIN 14.3 G/DL (11.5-16.0); LYMPHOCYTES # (AUTO) 1.6 X 10^3 (1.0-4.0); LYMPHOCYTES % (AUTO) 17 % (12-44); MEAN CORPUSCULAR HEMOGLOBIN 30 PG (25-34); MEAN CORPUSCULAR HGB CONC 34 G/DL (32-36); MEAN CORPUSCULAR VOLUME 87 FL (80-99); MEAN PLATELET VOLUME 10.1 FL (7.4-10.4); MONOCYTES # (AUTO) 0.6 X 10^3 (0.0-1.0); MONOCYTES % (AUTO) 7 % (0-12); NEUTROPHILS # (AUTO) 6.8 X 10^3 (1.8-7.8); NEUTROPHILS % (AUTO) 74 % (42-75); PLATELET COUNT 421 10^3/uL (130-400); RED BLOOD COUNT 4.79 10^6/uL (4.35-5.85); RED CELL DISTRIBUTION WIDTH 12.7 % (10.0-14.5); WHITE BLOOD COUNT 9.1 10^3/uL (4.3-11.0)
[2017-05-02 10:56] LABS: PROTHROMBIN TIME PATIENT 13.2 SEC (12.2-14.7)
== END 2017-05-02 10:40 | disposition home or self-care (01) ==
LOC: PREOP 09:48
PROVIDERS: ATTEND Obstetrics & Gynecology
DX: Z01.812 Encounter for preprocedural laboratory examination (principal); Z11.2 Encounter for screening for other bacterial diseases; R19.09 Other intra-abdominal and pelvic swelling, mass and lump
CPT/HCPCS: 36415; 82105; 82378; 82670; 83520; 83615; 84702; 85025; 85610; 86304; 86336; 87081

== ENCOUNTER 2017-05-04 06:59 | Day surgery (SDC) | payer MEDICAID ==
[~2017-05-04] VITALS: Ht 165.1 cm; Wt 69.4 kg
[~2017-05-04 06:59] MED LIST changes: +CIPR500T4 PO; +DIAZ5TAB3 PO; +HYDR-3812 PO; +METR500T21 PO; +ONDA4TAB8 SL; +TOPI100T11 PO
--- NOTE | 2017-05-04 07:12 | Progress Note-Pre Operative ---
Pre-Operative Progress Note H&P Reviewed The H&P was reviewed, patient examined and no changes noted. Date Seen by Provider: May 04, 2017 Time Seen by Provider: 07:12 Date H&P Reviewed: May 04, 2017 Time H&P Reviewed: 07:12 Pre-Operative Diagnosis: Pelvic mass DINORAH COLEMAN DO May 04, 2017 7:12 am
[2017-05-04] MEDS: LACTATED RINGERS 1,000 ML IV PRN ×2 (07:15→09:00)
[2017-05-04] MEDS ORDERED: LACTATED RINGERS 1,000 ML IV PRN (07:25)
[2017-05-04 07:28] VITALS: BP 118/88
[2017-05-04] MEDS ORDERED: metroNIDAZOLE 500MG/100ML IVPB 100 ML IV ONE (07:30)
[2017-05-04] MEDS ORDERED: FAMOTIDINE 20MG/2ML IV (PEPCID) IV ONE (07:30)
[2017-05-04] MEDS ORDERED: MIDAZOLAM 2 MG/2 ML (VERSED) VIAL IV ONE (07:30)
[2017-05-04] MEDS ORDERED: SCOPOLAMINE 1.5 MG (TRANSDERM-SCOP) PATCH TOP ONE (07:30)
[2017-05-04] MEDS ORDERED: ceFAZolin INJECTION 1,000 MG in NS (IVPB) 100 ML IV ONE (07:30)
[2017-05-04] MEDS ORDERED: metroNIDAZOLE 500 MG/100 ML IVPB (PRE-MIX) IV ONE (07:30)
[2017-05-04] MEDS ORDERED: ceFAZolin 1 GM/NS 100 ML IVPB IV ONE ×2 (07:30)
[2017-05-04] MEDS ORDERED: ONDANSETRON 4 MG/2 ML (SDV) Z0FRAN IV ONE (07:30)
[2017-05-04] MEDS ORDERED: LIDOCAINE PF 2% 5 ML (XYLOCAINE) VIAL ONE (08:12)
[2017-05-04] MEDS ORDERED: proPOfol 200 MG/20 ML (DIPRIVAN) VIAL IV ONE (08:12)
[2017-05-04] MEDS ORDERED: fentaNYL INJECTION 100 MCG/2 ML AMP ONE ×2 (08:13→09:52)
[2017-05-04] MEDS ORDERED: DEXAMETHASONE 10 MG/ML (DECADRON) 1 ML VIAL ONE (08:14)
[2017-05-04] MEDS ORDERED: SEVOFLURANE (ULTANE) 15 ML INHAL SOLN ONE ×6 (08:14→09:54)
[2017-05-04] MEDS ORDERED: ONDANSETRON 4 MG/2 ML (SDV) Z0FRAN ONE (08:14)
[2017-05-04] MEDS ORDERED: ROCURONIUM 10 MG/ML 5 ML SYRINGE IV ONE (08:14)
[2017-05-04] MEDS ORDERED: ONDANSETRON 4 MG/2 ML (SDV) Z0FRAN IVP PRN ×2 (08:30→10:15)
[2017-05-04] MEDS ORDERED: KETOROLAC 30 MG/ML VIAL ONE (08:43)
[2017-05-04] MEDS ORDERED: morphine INJ 10 MG/ML 1ML (SYR OR VIAL) ONE (08:43)
[2017-05-04] MEDS ORDERED: GLYCOPYRROLATE 0.2 MG/ML (ROBINUL) 2 ML VIAL ONE (09:34)
[2017-05-04] MEDS ORDERED: NEOSTIGMINE 1 MG/ML 5 ML SYRINGE ONE (09:34)
--- NOTE | 2017-05-04 10:07 | Discharge Inst-Women's Service ---
Discharge Inst-Women's Serv Depart Medication/Instructions New, Converted or Re-Newed RX: RX on Chart Consults/Follow Up Additional Follow Up: Yes Activity Activity: Activity as Tolerated Driving Instructions: No Driving for 1 Week NO SMOKING: NO SMOKING Nothing Inside Vagina: No Douching Diet Discharge Diet: No Restrictions Symptoms to Report to : Bleeding Excessive, Pain Increased, Fever Over 101 Degrees F, Vaginal Bleeding Increase For Any Problems or Questions: Contact Your Physician Skin/Wound Care Infection Signs and Symptoms: Increased Redness, Foul Odor of Wound, Increased Drainage, Skin Itchy or Has a Rash, Increased Swelling, Temperature Above 101 F Operative Area Clean and Dry: Keep Incision Clean/Dry Stitches/Griffin/Dermabond: Care of Griffin Bathing Instructions: DINORAH Bueon DO May 04, 2017 10:07 am
[2017-05-04] MEDS ORDERED: IBUP-1780 PO (10:11)
[2017-05-04] MEDS ORDERED: SIME80TA16 PO (10:11)
[2017-05-04] MEDS ORDERED: ACHD5005 PO (10:11)
[2017-05-04] MEDS ORDERED: DOCU100C37 PO (10:11)
[2017-05-04] MEDS ORDERED: fentaNYL INJECTION 100 MCG/2 ML AMP IVP PRN (10:15)
[2017-05-04] MEDS: KETOROLAC 30 MG/ML VIAL IVP PRN ×3 (10:34→23:08)
[2017-05-04] MEDS: morphine INJ 10 MG/ML 1ML (SYR OR VIAL) IVP PRN ×2 (10:35→10:46)
--- NOTE | 2017-05-04 10:56 | Anesthesia-General Post-Op ---
General Patient Condition Mental Status/LOC: Same as Preop Cardiovascular: Satisfactory Nausea/Vomiting: Absent Respiratory: Satisfactory Pain: Controlled Complications: Absent Post Op Complications Complications None Follow Up Care/Instructions Patient Instructions None needed. Anesthesia/Patient Condition Patient Condition Patient is doing well, no complaints, stable vital signs, no apparent adverse anesthesia problems. No complications reported per nursing. ARTUR MALCOLM CRNA May 04, 2017 10:56
[2017-05-04 11:20] VITALS: BP 101/66
[2017-05-04] MEDS: HYDROmorphone (DILAUDID) 2 MG/ML VIAL IVP PRN ×3 (11:48→20:31)
[2017-05-04] MEDS: D5 LR IV SOLUTION 1,000 ML IV SCH (14:10)
[2017-05-04] MEDS ORDERED: SUMAtriptan 50 MG (IMITREX) TAB PO NR (14:30)
--- NOTE | 2017-05-04 14:37 | OPERATIVE REPORT ---
DATE OF SERVICE: PREOPERATIVE DIAGNOSIS: A 46-year-old female with large pelvic mass. 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 PROCEDURE: Exploratory laparotomy with bilateral oophorectomy and removal of right ovarian cystic mass and appendectomy. SURGEON: Servando Arias DO. CO-SURGEON: John Gutiérrez DO, who is intraoperatively consulted. ANESTHESIA: General endotracheal. ESTIMATED BLOOD LOSS: 50 mL. URINE OUTPUT: 300 mL clear at the end of the procedure. FLUIDS: 1400 mL lactated Ringer solution. FINDINGS: Cystic appearing and large pelvic mass originating from the right ovary, grossly normal appearing left ovary, filmy adhesions of the right cystic structure to the small bowel as well as dense adhesions to the small bowel in certain areas. SPECIMEN SENT: Cyst and peritoneal washings, bilateral ovaries including the right ovarian cystic structure and appendix. INDICATIONS FOR PROCEDURE: This 46-year-old female was a followup from the emergency room at [facility] in [place] after findings of pelvic cystic mass on CT. The patient was in significant amount of pain when I saw her in the office and did not want to wait very long due to the amount of discomfort she was having, she was walking bent over. I ordered stat tumor markers on the patient. Discussed with her performing laparotomy that day; however, we did want to wait for the tumor markers to come back. Therefore, I told her if there was any acute change in her demeanor to come to the emergency room and we will proceed emergently. Otherwise, we plan to schedule it 2 days later, which give us time to get the tumor markers back which were all negative. I discussed with the patient preoperatively the negative tumor markers and the likelihood of this being a malignancy low. However, I would proceed with the case as if it were malignancy and take care not to have any further spread. We discussed with the patient all the risks of the procedure including bleeding, infection, damaging the bowel or surrounding structures, postoperative expectations, postoperative recovery time as well as the possibility of postoperative procedures if any damage to any organ should occur. The patient was agreeable to proceed. Consent was obtained in the preoperative area. The patient was taken to the operating room. OPERATIVE REPORT IN DETAIL: Once in the operating room, general anesthesia was found to be adequate. She was placed in a supine position and prepped and draped in normal sterile fashion. A Carpenter catheter was placed at that point. A timeout was performed before I make a midline incision, staying below the umbilicus using the knife and carried that down to the fascia using Bovie cautery. The fascial incision extended superiorly and inferiorly using Bovie cautery, which allows me to separate the rectus muscles down the linea alba and separate them with traction. Peritoneum was entered bluntly and extended with blunt traction as well. I placed an Papo ring retractor to peritoneal incision, which offers excellent lateral sidewall retraction. I am able to immediately identify this pelvic mass. I had the patient placed in a steep Trendelenburg, which allows me to isolate the pelvic mass, which appears cystic in nature with clear fluid noted within it. There are no excrescences noted. The diaphragm and liver are evaluated as well, which are very smooth with no nodularities. I first attempted to deliver this mass. I placed towels around my retraction points in case of rupture, which does occur in the process of trying to remove the mass and elevated up out of the pelvis. Once I do this, the fluid was suctioned using pool suction and sent as cytology of right ovarian cystic fluid. I then unable to identify the infundibulopelvic ligament of the ovary and the cyst and I go across it with the LigaSure, bipolar cauterized and sealed the vessels and transected them using the LigaSure. A portion of the cyst is adhered densely to the small bowel, likely the jejunum. I do call for Dr. Gutiérrez at that point to have him come and help me with dissection and possible appendectomy. I proceeded with taking the left ovary as well, isolating the infundibulopelvic ligament, running the LigaSure, crossed it, bipolar cauterized and transected using LigaSure. Once I am able to liberate the cyst using blunt traction from the bowel, Dr. Gutiérrez does come into the room to evaluate the bowel to make sure there is no damage to the small bowel where I had removed the cyst. We also sent it for frozen section due to its proximity to the bowel and possibility of doing a bowel resection if it is positive; however, pathology does call me back and let me know that this appears to be a benign serous cystadenoma. With this news, we do decided to go ahead and take the appendix. Please see Dr. Gutiérrez's operative report for complete details pertaining to this. After he is completed with that, we copiously irrigated the pelvis with normal saline. There was no active bleeding noted from any of my dissection planes. I did have the patient flattened out. We closed the peritoneum using 3-0 Vicryl suture in a running fashion after the Papo ring retractor was removed and lap and sponge count are correct. We closed the fascia using #1 looped PDS in a running fashion and the skin reapproximated using jarrett. Carpenter catheter was left in place. The patient tolerated the procedure well and taken to recovery in stable condition. Lap and sponge counts were correct at the end of the procedure. Instrument count was correct as well. One gram of Ancef and 500 mg of Flagyl were given preoperatively for infection prophylaxis. Job ID: [id number] DocumentID: [id number] Dictated Date: 05/04/2017 10:40:09 Wardrobe Stylist Date: 05/04/2017 14:36:39 Dictated By: DO TEMI BROWN
[2017-05-04] MEDS ORDERED: NS IV 500 ML 500 ML ONE (14:38)
[2017-05-04] MEDS ORDERED: NS 1000 ML IV BAG IV ONE (14:45)
[2017-05-04] MEDS ORDERED: NS IV 500 ML 500 ML IV ONE (14:45)
[2017-05-04 16:45] VITALS: BP 105/77
[2017-05-04] MEDS: METOCLOPRAMIDE INJ 10 MG/2 ML (REGLAN) IVP SCH ×2 (20:12→20:22)
[2017-05-04 20:22] VITALS: BP 102/64
[2017-05-04] MEDS: FAMOTIDINE 20MG/2ML IV (PEPCID) IVP SCH (20:22)
[2017-05-04 23:08] VITALS: BP 96/55
[2017-05-05] MEDS: D5 LR IV SOLUTION 1,000 ML IV SCH ×2 (00:27→00:46)
[2017-05-05] MEDS: HYDROmorphone (DILAUDID) 2 MG/ML VIAL IVP PRN ×2 (00:28→08:07)
[2017-05-05 03:47] VITALS: BP 89/58
[2017-05-05] MEDS: METOCLOPRAMIDE INJ 10 MG/2 ML (REGLAN) IVP SCH ×4 (03:47→22:02)
--- NOTE | 2017-05-05 05:52 | OPERATIVE REPORT ---
DATE OF SERVICE: 05/04/2017 PREOPERATIVE DIAGNOSIS: Pelvic mass. POSTOPERATIVE DIAGNOSES: Pelvic mass and possible appendicitis. PROCEDURE: Appendectomy. SURGEON: Dariusz Gutiérrez DO. INDICATIONS: The patient is a 46-year-old female who was undergoing exploratory laparotomy for a pelvic mass by Dr. Arias. He had called me to come assist and evaluate the small bowel and appendix. The patient had a cyst in the pelvis that had already ruptured. This was adherent onto the distal ileum. At this time, I assisted him in removing the cyst from the small bowel. After it was removed, the small bowel had normal serosa and no evidence of any injury to the small bowel. The appendix was slightly rigid, looked as if it could have early appendicitis or was just reactive. It was decided to go ahead and remove. LigaSure was used to dissect the appendix off of the mesoappendix. Once at the base of the appendix, an Endo-JOE 2.5 stapler was then fired across the base of the appendix. Staple lines were intact. Please see Dr. Arias's dictation for the rest of procedures. Job ID: [id number] DocumentID: [id number] Dictated Date: 05/04/2017 21:28:58 Training Specialist Date: 05/05/2017 02:53:32 Dictated By: DARIUSZ GUTIÉRREZ DO MTDD
[2017-05-05] MEDS: KETOROLAC 30 MG/ML VIAL IVP PRN (06:51)
[2017-05-05 07:14] LABS: BASOPHILS % (AUTO) 0 % (0-10); EOSINOPHILS % (AUTO) 0 % (0-10); HEMATOCRIT 35 % (35-52); HEMOGLOBIN 11.7 G/DL (11.5-16.0); LYMPHOCYTES # (AUTO) 2.2 X 10^3 (1.0-4.0); LYMPHOCYTES % (AUTO) 17 % (12-44); MEAN CORPUSCULAR HEMOGLOBIN 30 PG (25-34); MEAN CORPUSCULAR HGB CONC 34 G/DL (32-36); MEAN CORPUSCULAR VOLUME 89 FL (80-99); MEAN PLATELET VOLUME 10.1 FL (7.4-10.4); MONOCYTES # (AUTO) 0.9 X 10^3 (0.0-1.0); MONOCYTES % (AUTO) 7 % (0-12); NEUTROPHILS # (AUTO) 9.6 X 10^3 (1.8-7.8); NEUTROPHILS % (AUTO) 75 % (42-75); PLATELET COUNT 367 10^3/uL (130-400); RED BLOOD COUNT 3.91 10^6/uL (4.35-5.85); RED CELL DISTRIBUTION WIDTH 12.7 % (10.0-14.5); WHITE BLOOD COUNT 12.7 10^3/uL (4.3-11.0)
[2017-05-05] MEDS: DOCUSATE SODIUM 100 MG (COLACE) CAP PO SCH ×2 (08:07→22:02)
[2017-05-05 08:12] VITALS: BP 97/63
--- NOTE | 2017-05-05 09:37 | Progress Note-Standard ---
Standard Progress Note Progress Notes/Assess & Plan Date Seen by Provider: May 05, 2017 Time Seen by Provider: 09:15 Progress/Assessment & Plan Patient doing well POD 1 Ex lap with removal of pelvic mass, and appendectomy. Carpenter out, she is ambulating and voiding freely. Pain well controlled. Tolerating a regular diet. Vital Sign - Last 24 Hours 05/04/17 05/04/17 05/04/17 05/04/17 11:20 13:13 16:45 20:22 Temp 97.8 97.5 98.2 Pulse 58 62 108 Resp 14 16 16 B/P (MAP) 101/66 (78) 105/77 (86) 102/64 (77) Pulse Ox 100 100 99 O2 Delivery Room Air Room Air Room Air Room Air 05/04/17 05/05/17 05/05/17 23:08 03:47 08:12 Temp 98.8 99.4 99.4 Pulse 64 77 76 Resp 16 16 16 B/P (MAP) 96/55 (69) 89/58 (68) 97/63 (74) Pulse Ox 98 98 99 O2 Delivery Room Air Room Air Room Air Intake and Output 05/04/17 05/04/17 05/05/17 15:00 23:00 07:00 Intake Total 1200 ml 1422 ml 600 ml Output Total 350 ml 900 ml 950 ml Balance 850 ml 522 ml -350 ml Laboratory Tests Test 05/05/17 07:03 Range/Units White Blood Count 12.7 H 4.3-11.0 10^3/uL Red Blood Count 3.91 L 4.35-5.85 10^6/uL Hemoglobin 11.7 11.5-16.0 G/DL Hematocrit 35 35-52 % Mean Corpuscular Volume 89 80-99 FL Mean Corpuscular Hemoglobin 30 25-34 PG Mean Corpuscular Hemoglobin Concent 34 32-36 G/DL Red Cell Distribution Width 12.7 10.0-14.5 % Platelet Count 367 130-400 10^3/uL Mean Platelet Volume 10.1 7.4-10.4 FL Neutrophils (%) (Auto) 75 42-75 % Lymphocytes (%) (Auto) 17 12-44 % Monocytes (%) (Auto) 7 0-12 % Eosinophils (%) (Auto) 0 0-10 % Basophils (%) (Auto) 0 0-10 % Neutrophils # (Auto) 9.6 H 1.8-7.8 X 10^3 Lymphocytes # (Auto) 2.2 1.0-4.0 X 10^3 Monocytes # (Auto) 0.9 0.0-1.0 X 10^3 Eosinophils # (Auto) 0.0 0.0-0.3 10^3/uL Basophils # (Auto) 0.0 0.0-0.1 10^3/uL Incision: c/d/i jarrett in place Diagnosis: POD 1 Ex lap for ovarian cyst Prelim- frozen benign serious cystadenoma P: Encourage ambulation Anticipate dc tomorrow DINORAH COLEMAN DO May 05, 2017 9:37 am
[2017-05-05] MEDS: FAMOTIDINE 20MG/2ML IV (PEPCID) IVP SCH ×2 (10:05→16:18)
[2017-05-05] MEDS: HYDROcodone/APAP 5 MG/325 MG (LORTAB) TAB PO PRN ×3 (10:55→21:18)
[2017-05-05] MEDS ORDERED: INFLUENZA TRIvalent 2017-2018 0.5 ML/45 MCG SYR IM ONE (11:30)
[2017-05-05] MEDS: IBUPROFEN 800 MG (MOTRIN) TAB PO SCH ×2 (12:46→18:29)
[2017-05-05 12:50] VITALS: BP 92/67
[2017-05-05] MEDS ORDERED: SUMAtriptan 50 MG (IMITREX) TAB PO ONE (16:30)
[2017-05-05 22:00] VITALS: BP 105/72
[2017-05-06] MEDS: HYDROcodone/APAP 5 MG/325 MG (LORTAB) TAB PO PRN ×4 (00:13→14:00)
[2017-05-06] MEDS: IBUPROFEN 800 MG (MOTRIN) TAB PO SCH ×2 (04:51→13:13)
[2017-05-06] MEDS: METOCLOPRAMIDE INJ 10 MG/2 ML (REGLAN) IVP SCH ×2 (04:51→11:28)
[2017-05-06 04:55] VITALS: BP 102/71
[2017-05-06 08:25] VITALS: BP 119/71
[2017-05-06] MEDS: DOCUSATE SODIUM 100 MG (COLACE) CAP PO SCH (08:50)
--- NOTE | 2017-05-06 09:32 | Progress Note-Standard ---
Standard Progress Note Progress Notes/Assess & Plan Date Seen by Provider: May 06, 2017 Time Seen by Provider: 09:30 Progress/Assessment & Plan Patient doing well POD 2 Ex lap with removal of pelvic mass, and appendectomy. Carpenter out, she is ambulating and voiding freely. Pain well controlled. Tolerating a regular diet. Vital Sign - Last 24 Hours 05/05/17 05/05/17 05/06/17 12:50 22:00 04:55 Temp 98.2 98.3 98.2 Pulse 83 60 61 Resp 16 18 18 B/P (MAP) 92/67 (75) 105/72 (83) 102/71 (81) Pulse Ox 98 100 100 O2 Delivery Room Air Intake and Output 05/05/17 05/05/17 05/06/17 15:00 23:00 07:00 Intake Total 1000 ml 1866 ml 1700 ml Output Total 2050 ml 3300 ml Balance 1000 ml -184 ml -1600 ml Incision: c/d/i jarrett in place Diagnosis: POD 2 Ex lap for ovarian cyst Prelim- frozen benign serious cystadenoma P: Encourage ambulation PO precautions reviewed Anticipate dc today DINORAH COLEMAN DO May 06, 2017 09:32
[2017-05-06] MEDS ORDERED: SCOP1PAT17 TD (09:34)
[2017-05-06] MEDS: FAMOTIDINE 20MG/2ML IV (PEPCID) IVP SCH (11:27)
[2017-05-06] MEDS: D5 LR IV SOLUTION 1,000 ML IV SCH ×2 (11:28→11:29)
[2017-05-06 13:00] VITALS: BP 118/87
== END 2017-05-06 16:40 | disposition home or self-care (01) ==
LOC: SDC 06:59 → EDSTATUS 08:15 → WS 11:25 → SDC 05-06 16:40
PROVIDERS: ATTEND Obstetrics & Gynecology
DX: D27.0 Benign neoplasm of right ovary (principal); N94.89 Other specified conditions associated with female genital organs and menstrual cycle; N83.8 Other noninflammatory disorders of ovary, fallopian tube and broad ligament; K38.8 Other specified diseases of appendix; F41.9 Anxiety disorder, unspecified; G25.81 Restless legs syndrome; G57.93 Unspecified mononeuropathy of bilateral lower limbs; Z79.899 Other long term (current) drug therapy
CPT/HCPCS: 36415; 85025; 86850; 86900; 86901; 94664

== ENCOUNTER 2017-05-07 21:25 | Emergency (ER) | payer MEDICAID ==
[~2017-05-07] VITALS: Ht 165.1 cm; Wt 68.9 kg
[~2017-05-07 21:25] MED LIST changes: +ACHD5005 PO; +IBUP-1780 PO; +SCOP1PAT17 TD
--- NOTE | 2017-05-07 21:40 | ED Integumentary General ---
General Stated Complaint: SHARP OBJECT PROTRUDING FROM IN INCISION Source: patient Exam Limitations: no limitations History of Present Illness Date Seen by Provider: May 07, 2017 Time Seen by Provider: 21:35 Initial Comments To ER with reports of a sharp object on the right side of her midline suprapubic incision beneath the skin. She had appendectomy and pelvic mass removal with bilateral oophorectomy last week. Griffin remain in place. She states "I've showed people this and they've all looked at it but nobody has actually touched it!" Timing/Duration: week Severity: mild Allergies and Home Medications Allergies Coded Allergies: Penicillins (Verified Allergy, Unknown, RASH, 08/30/16) Home Medications Diazepam 5 Mg Tablet, 5 MG PO DAILY PRN for ANXIETY, (Reported) Docusate Sodium 100 Mg Capsule, 100 MG PO BID PRN for CONSTIPATION-1ST LINE Prescribed by: DINORAH COLEMAN on 05/04/17 1011 Hydrocodone Bit/Acetaminophen 1 Tab Tab, 1-2 TAB PO Q4H PRN for PAIN-MODERATE Prescribed by: DINORAH COLEMAN on 05/04/17 1011 Ibuprofen 800 Mg Tablet, 800 MG PO Q6H Prescribed by: DINORAH COLEMAN on 05/04/17 1011 Omeprazole 20 Mg Tablet.dr, 20 MG PO DAILY, (Reported) Scopolamine 1 Each Patch.td.3, 1 EACH TD q72 hr PRN for nausea Prescribed by: DINORAH COLEMAN on 05/06/17 0934 Simethicone 80 Mg Tab.chew, 80 MG PO BID PRN for GAS Prescribed by: DINORAH COLEMAN on 05/04/17 1011 Sumatriptan Succinate 100 Mg Tablet, 100 MG PO BID PRN for MIGRAINE, (Reported) Topiramate 100 Mg Tablet, 100 MG PO BID, (Reported) Tramadol HCl 50 Mg Tablet, 50 MG PO DAILY PRN for PAIN-MILD, (Reported) Patient Home Medication List Home Medication List Reviewed: Yes Constitutional: see HPI EENTM: see HPI Respiratory: no symptoms reported Cardiovascular: no symptoms reported Genitourinary: no symptoms reported Musculoskeletal: no symptoms reported Skin: see HPI Psychiatric/Neurological: No Symptoms Reported Endocrine: No Symptoms Reported Past Zjxzpho-[id number]-Axxndv Hx Patient Social History 2nd Hand Smoke Exposure: No Recent Foreign Travel: No Contact w/Someone Who Travel: No Recent Hopitalizations: No Seasonal Allergies Seasonal Allergies: Yes Surgeries History of Surgeries: Yes (left knee scope) Surgeries: Hysterectomy, Tonsillectomy Respiratory History of Respiratory Disorde: No Cardiovascular History of Cardiac Disorders: No Neurological History of Neurological Disord: Yes Neurological Disorders: Headaches /Migraines Reproductive System Hx Reproductive Disorders: Yes Gastrointestinal History of Gastrointestinal Di: No Musculoskeletal History of Musculoskeletal Dis: No Endocrine History of Endocrine Disorders: No Cancer History of Cancer: No Psychosocial History of Psychiatric Problem: Yes Behavioral Health Disorders: Anxiety Integumentary History of Skin or Integumenta: No Blood Transfusions History of Blood Disorders: Yes (anemia) Family Medical History Family Medial History: Asthma 19 MOTHER Physical Exam Vital Signs Vital Signs - First Documented 05/07/17 21:31 Temp 98.1 Pulse 103 Resp 20 B/P (MAP) 151/86 (107) Pulse Ox 99 O2 Delivery Room Air Capillary Refill : General Appearance: WD/WN, no apparent distress HEENT: PERRL/EOMI, normal ENT inspection Neck: non-tender, full range of motion Respiratory: no respiratory distress, no accessory muscle use Neurologic/Psychiatric: alert, normal mood/affect, oriented x 3 Skin: normal color, warm/dry Skin Problem Character: other (there is a midline abdominal incision clean dry and intact without drainage or erythema. Griffin remain in place. To the right side about mcfp down on the incision line and 1 cm lateral to the right there is a sharp feeling 1-2 mm object beneath the skin which the skin rolls over easily. I believe this to be a knot in the subcutaneous stitch. Advised the patient of this and she disagrees. She is very hostile in route towards staff members stating "we've had shitty treatment here before and its not going to happen again!") Progress/Results/Core Measures Results/Orders My Orders Orders - [employer] Pelvis (05/07/17 21:34) Vital Signs/I&O Vital Sign - Last 12Hours 05/07/17 05/07/17 21:31 22:22 Temp 98.1 Pulse 103 0 Resp 20 0 B/P (MAP) 151/86 (107) 0/0 Pulse Ox 99 0 O2 Delivery Room Air Departure Impression Impression: Primary Impression: Post Operative Subcutaneous nodule Disposition: 01 HOME, SELF-CARE Condition: Stable Departure-Patient Inst. Decision time for Depature: 21:38 Referrals: BERNY JETT DO (PCP/Family) Primary Care Physician DARIUSZ GARCIA MICHAEL S DO Patient Instructions: NO INSTRUCTIONS GIVEN Add. Discharge Instructions: 1. Call your surgeon tomorrow for further evaluation of this which is likely the knot in a dissolvable suture that was used to close the deeper abdominal wall structures. Copy Copies To 1: DARIUSZ GARCIA DO; DINORAH COLEMAN PETER J APRN May 07, 2017 21:40
[2017-05-07 22:22] VITALS: BP 0/0
--- NOTE | 2017-05-07 22:30 | Diagnostic Imaging Report ---
EXAM: PELVIS INDICATION: Recent hysterectomy and appendectomy. Sharp pain on the right side of the incision. COMPARISON: None. FINDINGS: Anterior skin jarrett along the midline pelvis. No radiopaque foreign bodies. Phleboliths. Large amount of stool throughout the visualized colon and rectum. No acute osseous findings. IMPRESSION: 1. Large amount of stool throughout the visualized colon and rectum. 2. No radiopaque foreign bodies. Dictated by: Dictated on workstation # [id number]
== END 2017-05-07 22:22 | disposition home or self-care (01) ==
LOC: EDUNIT# 21:25 → ER 21:27
DX: L76.82 Other postprocedural complications of skin and subcutaneous tissue (principal); F41.9 Anxiety disorder, unspecified; G43.909 Migraine, unspecified, not intractable, without status migrainosus; Z90.89 Acquired absence of other organs; Z90.710 Acquired absence of both cervix and uterus; Z88.0 Allergy status to penicillin; Z90.49 Acquired absence of other specified parts of digestive tract
CPT/HCPCS: 72170

== ENCOUNTER 2017-08-03 13:18 | Emergency (ER) | payer MEDICAID ==
[~2017-08-03] VITALS: Ht 165.1 cm; Wt 63.5 kg
[2017-08-03] MEDS ORDERED: KETOROLAC 30 MG/ML VIAL IVP ONE (15:15)
[2017-08-03] MEDS ORDERED: diphenhydrAMINE 50 MG/ML INJ (BENADRYL) IVP ONE (15:15)
[2017-08-03] MEDS ORDERED: NS IV 1000 ML 1,000 ML IV SCH (15:15)
--- NOTE | 2017-08-03 16:09 | ED Headache ---
General Chief Complaint: Head/Cervical Problems Stated Complaint: MIGRAINE Nursing Triage Note: PT REPORTS GETTING MIGRAINE THIS AM AND VOMITING MULTIPLE TIMES. HAS HX OF MIGRAINES AND USES MEDICATIONS DAILY. PT HAS TAKEN ALL PRESCRIBED MEDICATIONS, AND MORE WITHOUT ANY RELIEF. PT CAN TELL SHE HAS TAKEN TOO MUCH OF HER MEDICATION BECAUSE SHE FEELS LIGHTHEADED BUT HAS A SEVERE PAIN THROUGH THE MIDDLE OF HER HEAD. REPORTS THIS PAIN IS NOT THE SAME HER NORMAL MIGRAINE. Nursing Sepsis Screen: No Definite Risk Source: patient History of Present Illness Date Seen by Provider: Aug 03, 2017 Time Seen by Provider: 15:40 Initial Comments The patient's a 47-year-old white female who presented with complaints of a migraine headache. She is suffered from these for years. She sees Dr. Hung in [place] for these and has been given Imitrex, tramadol, and Toradol which usually help. She reports that today's headache awakened her from sleep. She has taken her medications without improvement at home. The pain is described as being somewhat unusual in its location as being more over the left eye and to the anabaptism anabaptism rather than the usual central location. There is photophobia. There is nausea. Timing/Duration: 4-6 hours Severity/Quality: moderate, severe Location: temporal Prior Headaches/Recent Trauma: occasional headaches Modifying Factors: improves with exposure to light Allergies and Home Medications Allergies Coded Allergies: Penicillins (Verified Allergy, Unknown, RASH, 08/30/16) Home Medications Diazepam 5 Mg Tablet, 5 MG PO DAILY PRN for ANXIETY, (Reported) Docusate Sodium 100 Mg Capsule, 100 MG PO BID PRN for CONSTIPATION-1ST LINE Prescribed by: DINORAH COLEMAN on 05/04/17 1011 Hydrocodone Bit/Acetaminophen 1 Tab Tab, 1-2 TAB PO Q4H PRN for PAIN-MODERATE Prescribed by: DINORAH COLEMAN on 05/04/17 1011 Ibuprofen 800 Mg Tablet, 800 MG PO Q6H Prescribed by: DINORAH CLOEMAN on 05/04/17 1011 Omeprazole 20 Mg Tablet.dr, 20 MG PO DAILY, (Reported) Scopolamine 1 Each Patch.td.3, 1 EACH TD q72 hr PRN for nausea Prescribed by: DINORAH COLEMAN on 05/06/17 0934 Simethicone 80 Mg Tab.chew, 80 MG PO BID PRN for GAS Prescribed by: DINORAH COLEMAN on 05/04/17 1011 Sumatriptan Succinate 100 Mg Tablet, 100 MG PO BID PRN for MIGRAINE, (Reported) Topiramate 100 Mg Tablet, 100 MG PO BID, (Reported) Tramadol HCl 50 Mg Tablet, 50 MG PO DAILY PRN for PAIN-MILD, (Reported) Patient Home Medication List Home Medication List Reviewed: Yes Review of Systems Constitutional: see HPI Eyes: Blurred Vision Ears, Nose, Mouth, Throat: no symptoms reported Respiratory: no symptoms reported Cardiovascular: no symptoms reported Gastrointestinal: nausea Genitourinary: no symptoms reported Musculoskeletal: no symptoms reported Skin: no symptoms reported Psychiatric/Neurological: No Symptoms Reported Past Xjttkjb-Eodmpe-Gqvmcr Hx Patient Social History 2nd Hand Smoke Exposure: No Recent Foreign Travel: No Contact w/Someone Who Travel: No Recent Infectious Disease Expo: No Recent Hopitalizations: No Seasonal Allergies Seasonal Allergies: Yes Past Medical History Surgeries: Yes (left knee scope) Abdominal, Hysterectomy, Tonsillectomy Respiratory: No Cardiac: No Neurological: Yes Headaches /Migraines : No Reproductive Disorders: Yes Gastrointestinal: No Musculoskeletal: No Endocrine: No Cancer: No Psychosocial: Yes Anxiety Integumentary: No Blood Disorders: Yes (anemia) Family Medical History Asthma 19 MOTHER Physical Exam Vital Signs Vital Signs - First Documented 08/03/17 14:15 Pulse 63 Resp 18 B/P (MAP) 107/76 (86) O2 Delivery Room Air Capillary Refill : Less Than 3 Seconds General Appearance: moderate distress HEENT: normal ENT inspection Neck: full range of motion Cardiovascular: normal peripheral pulses, regular rate, rhythm, no edema, no gallop, no JVD, no murmur Respiratory: chest non-tender, lungs clear, normal breath sounds, no respiratory distress, no accessory muscle use Comments Pupils are somewhat dilated but equal. Discs are sharp. Progress/Results/Core Measures Results/Orders My Orders Orders - MATTY BABCOCK MD Iv 1000 Ml (Sodium Chloride 0.9%) (08/03/17 15:15) Ketorolac Injection (Toradol Injection) (08/03/17 15:15) Diphenhydramine Injection (Benadryl Inje (08/03/17 15:15) Medications Given in ED Current Medications Medications Dose Ordered Sig/Cynthia Route Start Time Stop Time Status Last Admin Dose Admin Diphenhydramine HCl 50 mg ONCE ONCE IVP 08/03/17 15:15 08/03/17 15:16 DC 08/03/17 15:17 50 MG Ketorolac Tromethamine 30 mg ONCE ONCE IVP 08/03/17 15:15 08/03/17 15:16 DC 08/03/17 15:17 30 MG Vital Signs/I&O 08/03/17 14:15 Pulse 63 Resp 18 B/P (MAP) 107/76 (86) O2 Delivery Room Air Blood Pressure Mean: 86 Departure Communication (Admissions) 7502 patient reports that she is drowsy and feeling much better. Impression Primary Impression: Migraine Disposition: 01 HOME, SELF-CARE Condition: Improved Departure-Patient Inst. Decision time for Depature: 16:35 Referrals: DINORAH COLEMAN DO (PCP/Family) Primary Care Physician Patient Instructions: Migraine Headache (DC) Add. Discharge Instructions: All discharge instructions reviewed with patient and/or family. Voiced understanding. Home and to bed. Resume usual treatments as needed for migraines MATTY BABCOCK MD Aug 03, 2017 16:09
[2017-08-03 17:31] VITALS: BP 107/77
== END 2017-08-03 17:31 | disposition home or self-care (01) ==
LOC: EDUNIT# 13:18 → ER 13:20
DX: G43.909 Migraine, unspecified, not intractable, without status migrainosus (principal); F41.9 Anxiety disorder, unspecified; Z90.89 Acquired absence of other organs; Z90.710 Acquired absence of both cervix and uterus; Z88.0 Allergy status to penicillin
CPT/HCPCS: 96361; 96374; 96375; 99284

== ENCOUNTER 2021-05-19 12:38 | Outpatient (RCR) | payer MEDICAID ==
[~2021-05-19 12:38] MED LIST changes: -CIPR500T4 PO; +CIPR500T5 PO; -DIAZ5TAB3 PO; +DIAZ5TAB49 PO; -HYDR-3812 PO; +METR-145 PO; -METR500T21 PO; +OMEP20TA56 PO; -OMEP20TA7 PO; -TRAM50TA2 PO; +TRM50T PO
== END 2021-05-19 14:07 | disposition home or self-care (01) ==
PROVIDERS: ATTEND Internal Medicine Critical Care Medicine
DX: J38.3 Other diseases of vocal cords (principal)

== ENCOUNTER → 2021-12-26 | Outpatient (CLI) | payer MEDICAID ==
--- NOTE | 2021-12-26 14:11 | Diagnostic Imaging Report ---
INDICATION: VENTRAL INCISIONAL HERNIA TECHNIQUE: Multiple real time ramos scale sonographic images were obtained of the abdominal wall. CORRELATION STUDY: None FINDINGS: Imaging performed in the area of interest with the patient in upright position. This is reported superior to the umbilicus. Discrete definite abdominal wall defect or mass does not appear to be suggested. IMPRESSION: 1.No discrete hernia defect or mass at the area of interest along the anterior abdominal wall. If further imaging evaluation desired, CT imaging would be recommended. Dictated by: Dictated on workstation # [id number]
== END ==
LOC: RAD 09:56
PROVIDERS: ATTEND Surgery
DX: K43.2 Incisional hernia without obstruction or gangrene (principal)
CPT/HCPCS: 76705

== ENCOUNTER → 2022-02-16 | Outpatient (CLI) | payer MEDICAID ==
[~2022-02-16] MED LIST changes: +CATHETER FLUSH 10 ML SYR IV PRN; +IOHEXOL 350 MG/ML 100 ML (OMNIPAQUE 350) VIAL IV ONE; +NS 100 ML (IVPB) BAG IV ONE
--- NOTE | 2022-02-16 11:37 | Diagnostic Imaging Report ---
PROCEDURE: CT abdomen and pelvis with contrast. TECHNIQUE: Multiple contiguous axial images were obtained through the abdomen and pelvis after administration of intravenous contrast. Auto Exposure Controls were utilized during the CT exam to meet ALARA standards for radiation dose reduction. All CT scans use one or more of the following dose optimizing techniques: automated exposure control, MA and/or KvP adjustment based on patient size and exam type or iterative reconstruction. INDICATION: Periumbilical pain. No prior studies are available for comparison. Lung bases are clear. Tiny low-attenuation lesion in the right lobe of liver is noted too small to characterize. Gallbladder is unremarkable. There is no biliary ductal dilatation. Pancreas and spleen are unremarkable. No adrenal mass is detected. Kidneys are unremarkable. Aorta is nonaneurysmal. The small and large bowel loops are normal caliber. The gallbladder appears to be surgically absent. No inflammatory changes are seen. There is no free fluid or fluid collection. Bladder is decompressed. Uterus is surgically absent. Bony structures are nonacute. IMPRESSION: Essentially unremarkable CT of the abdomen and pelvis with contrast. No acute features detected. Dictated by: Dictated on workstation # [id number]
== END ==
LOC: RAD 10:15
PROVIDERS: ATTEND Surgery
DX: R10.33 Periumbilical pain (principal)
CPT/HCPCS: 74177